=== PATIENT | female | born 1935 | race American Indian/Alaskan Native ===

== ENCOUNTER 2016-10-09 13:55 | Emergency (ER) | payer MEDICARE ==
[2016-10-09] MEDS ORDERED: DUONEB 0.5 MG-3 MG/3 ML SOLN IH ONE (16:25)
[2016-10-09] MEDS ORDERED: TESSALON PERLES PO ONE (16:25)
[2016-10-09] MEDS ORDERED: ZITHROMAX PO ONE (16:26)
--- NOTE | 2016-10-09 16:28 | Emergency Department Report ---
HPI - General Chief Complaint: Upper Respiratory Infection Time Seen by Provider: 10/09/16 16:21 - HPI HPI: 81-year-old Afro-[place] female who presents to the emergency department saying that she needs to have a chest x-ray done secondary to a lingering mixed dry and productive cough over the past 2-3 weeks. Patient was seen at [facility] and the physician there told her that she should get a chest x- ray done. She denies any chest pain, shortness of breath, fever, back pain, nausea or vomiting. Patient has a history of hypertension, diabetes and end- stage renal disease on hemodialysis on Sunday, and Sunday. She has been compliant with her dialysis sessions. She denies any significant swelling. She has a primary care doctor but has not seen them regarding her symptoms. Her [employer] is Dr. Painting. Patient has been on a cough syrup but says she has not given it on a regular basis. No recent travel. ED Past Medical Hx - Past Medical History Hx Hypertension: Yes Hx Congestive Heart Failure: Yes Hx Diabetes: Yes Hx Renal Disease: Yes (dialysis , , Sun) Hx Arthritis: Yes - Surgical History Additional Surgical History: R knee replacement - Social History Smoking Status: Never Smoker Substance Use Type: None - Medications Home Medications: Home Medications Medication Instructions Recorded Confirmed Last Taken Type Insulin Aspart [NovoLOG 100 15 unit SQ AC 03/17/15 03/18/15 03/16/15 08:00 History UNITS/ML] Insulin Glargine [Lantus] 42 unit SUB-Q QHS 03/17/15 03/18/15 03/16/15 22:00 History Atorvastatin [Lipitor Tab] 40 mg PO 03/18/15 03/18/15 03/16/15 21:00 History Bumetanide [Bumex] 1 mg PO DAILY 03/18/15 03/18/15 03/16/15 09:00 History Calcitriol [Rocaltrol] 0.5 mcg PO 03/18/15 03/18/15 03/16/15 09:00 History Carvedilol [Coreg] 12.5 mg PO BID 03/18/15 03/18/15 03/18/15 11:00 History Donepezil HCl 10 mg PO 03/18/15 03/18/15 03/16/15 09:00 History Losartan [Cozaar] 100 mg PO QDAY 03/18/15 03/18/15 03/18/15 11:00 History Sodium Bicarbonate 650 mg PO BID 03/18/15 03/18/15 03/16/15 09:00 History amLODIPine 03/18/15 03/18/15 03/16/15 09:00 History ALBUTEROL Inhaler [ProAir HFA 2 puff IH QID PRN #1 inhalation 10/09/16 Unknown Rx Inhaler] Azithromycin [Zithromax Z-NEISHA] 250 mg PO DAILY #6 tab 10/09/16 Unknown Rx Benzonatate [Tessalon Perles] 100 mg PO Q8HR #20 capsule 10/09/16 Unknown Rx ED Review of Systems ROS: Stated complaint: COUGH Other details as noted in HPI Comment: All other systems reviewed and negative Constitutional: denies: chills, fever Eyes: denies: eye pain, eye discharge, vision change ENT: denies: ear pain, throat pain Respiratory: cough. denies: shortness of breath, wheezing Cardiovascular: denies: chest pain, palpitations Gastrointestinal: denies: abdominal pain, nausea, diarrhea Genitourinary: denies: urgency, dysuria, discharge Musculoskeletal: denies: back pain, joint swelling, arthralgia Skin: denies: rash, lesions Neurological: denies: headache, weakness, paresthesias Physical Exam - Physical Exam Vital Signs: Vital Signs 10/09/16 15:23 Temperature 98.3 F Pulse Rate 73 Respiratory 18 Rate Blood Pressure 173/69 O2 Sat by Pulse 96 Oximetry Physical Exam: GENERAL: The patient is well-developed well-nourished. Patient is awake and alert. HEENT: Normocephalic. Atraumatic. Extraocular motions are intact. Patient has moist mucous membranes. Pupils equal reactive to light bilaterally. NECK: Supple. Trachea is midline. CHEST/LUNGS: Coarse breath sounds throughout the chest. No tachypnea or accessory muscle use. No cough heard during examination. There is no respiratory distress noted. HEART/CARDIOVASCULAR: Regular. There is no tachycardia. There is no gallop rub or murmur. ABDOMEN: Abdomen is soft, nontender. Patient has normal bowel sounds. There is no abdominal distention. SKIN: There is no rash. There is no edema. There is no diaphoresis. NEURO: The patient is awake, alert, and oriented. The patient is cooperative. The patient has no focal neurologic deficits. The patient has normal speech. MUSCULOSKELETAL: There is no tenderness or deformity. There is no limitation range of motion. There is no evidence of acute injury. ED Course Vital Signs 10/09/16 15:23 Temperature 98.3 F Pulse Rate 73 Respiratory 18 Rate Blood Pressure 173/69 O2 Sat by Pulse 96 Oximetry ED Medical Decision Making - Lab Data Result diagrams: 10/09/16 17:49 10/09/16 17:49 - Radiology Data Radiology results: image reviewed interpreted by me: Chest x-ray did not show any acute process. Heart is normal shape and size. No effusions. No pneumothorax. No signs of pneumonia seen. - Medical Decision Making This is an 81-year-old female presents to the emergency department with a 2 or 3 week history of a lingering cough. Patient denies any chest pain or any significant shortness of breath. Patient's vital signs been stable including being afebrile. She had some hypertension but does come down to a more reasonable level. Due to the patient's history of diabetes and Accu-Chek was done that showed some hyperglycemia. For this reason some labs were drawn that shows hyperglycemia prior to getting insulin but she does not appear to be in any DKA or HHNK. CBC is mostly unremarkable and does not show any signs of leukocytosis or significant anemia. Patient was given a breathing treatment and some azithromycin. She's been stable throughout her ED course. She does not appear to have any obvious pneumonia, pleural effusions, pneumothorax. Patient has good follow-up with primary care. She is scheduled to have her dialysis tomorrow. She does not appear terribly volume overloaded but does have some mild coarse breath sounds. No respiratory distress. Patient appears safe for discharge home at this time. She will return to the emergency department with any worsening of her symptoms or any acute distress. She has both insulin and blood pressure medications take when she returns home. - Differential Diagnosis pneumonia, bronchitis, CHF, asthma Critical Care Time: No Critical care attestation.: If time is entered above; I have spent that time in minutes in the direct care of this critically ill patient, excluding procedure time. ED Disposition Clinical Impression: Hyperglycemia, CKD (chronic kidney disease) requiring chronic dialysis, Bronchitis Hypertension Qualifiers: Hypertension type: essential hypertension Qualified Code(s): I10 - Essential ( primary) hypertension Disposition: DISCHARGED TO HOME OR SELFCARE Is pt being admited?: No Does the pt Need Aspirin: No Condition: Stable Instructions: Hypertension (ED), Acute Bronchitis (ED), Chronic Kidney Disease (ED), Diabetic Hyperglycemia (ED) Additional Instructions: Please follow-up with your primary care doctor in the next few days. Return to the emergency department with any worsening of your symptoms or any acute distress. Please return to taking your insulin as prescribed and having her blood sugar checked on regular intervals. Try to stay away from foods that are high in carbohydrates, starches and sugars to assist with your diabetes. Try to stay with him foods that are high in salt and caffeinated products to assist with your elevated blood pressure. Make sure to take your blood pressure medications as prescribed. Prescriptions: ALBUTEROL Inhaler [ProAir HFA Inhaler] 2 puff IH QID PRN #1 inhalation PRN Reason: Shortness Of Breath Benzonatate [Tessalon Perles] 100 mg PO Q8HR #20 capsule Azithromycin [Zithromax Z-NEISHA] 250 mg PO DAILY #6 tab Referrals: PRIMARY CARE, [Primary Care Provider] - 3-5 Days Time of Disposition: 18:56
[2016-10-09 18:02] LABS: Basophils % (Auto) 0.6 % (0.0-1.8); Eosinophils % (Auto) 4.8 % (0.0-4.3); Hematocrit 35.7 % (30.3-42.9); Hemoglobin 11.2 gm/dl (10.1-14.3); Mean Corpuscular HGB Conc 31 % (30-34); Mean Corpuscular Hemoglobin 29 pg (28-32); Mean Corpuscular Volume 93 fl (79-97); Platelet Count 216 K/mm3 (140-440); Red Blood Count 3.85 M/mm3 (3.65-5.03); Red Cell Distribution Width 15.5 % (13.2-15.2); White Blood Count 11.6 K/mm3 (4.5-11.0)
[2016-10-09] MEDS ORDERED: APRESOLINE IV ONE (18:49)
[2016-10-09 19:01] VITALS: BP 150/58
[2016-10-09 19:18] LABS: BUN/Creatinine Ratio 7.83; Calcium 9.6 mg/dL (8.4-10.2); Chloride 94.6 mmol/L (98-107); Potassium 3.9 mmol/L (3.6-5.0)
--- NOTE | 2016-10-10 10:10 | XRay Report ---
PORTABLE CHEST INDICATION: Cough. COMPARISON: None similar at this institution. FINDINGS: Portable, frontal chest radiograph demonstrates limited inspiration with crowded bronchovascular markings, greatest towards the bases/possible atelectasis. Normal cardiomediastinal silhouette. Aortic knob calcifications. Right-sided central catheter tip about the cavoatrial junction/right atrium. Demineralized bones with few degenerative changes. CONCLUSION: Hypoinflation and prominent bronchovascular markings, as described. Thank you for the opportunity to participate in this patient's care.
== END 2016-10-09 22:46 | disposition home or self-care (01) ==
LOC: ED 13:55
DX: J40 Bronchitis, not specified as acute or chronic (principal); E11.65 Type 2 diabetes mellitus with hyperglycemia; E11.22 Type 2 diabetes mellitus with diabetic chronic kidney disease; I12.0 Hypertensive chronic kidney disease with stage 5 chronic kidney disease or end stage renal disease; N18.6 End stage renal disease; Z99.2 Dependence on renal dialysis; I50.9 Heart failure, unspecified; Z87.39 Personal history of other diseases of the musculoskeletal system and connective tissue
CPT/HCPCS: 36415; 71010; 80048; 82962; 85025; 94640; 96372; 96374; J1815